=== PATIENT | male | born 1940 | race Asian ===

== ENCOUNTER 2018-12-27 22:34 | Emergency (ER) | payer OTHER ==
[~2018-12-27] VITALS: Ht 177.8 cm; Wt 63.7 kg
[2018-12-27 22:40] VITALS: Ht 177.8 cm; Wt 63.7 kg
[2018-12-28 00:55] VITALS: BP 110/58
== END 2018-12-28 00:55 | disposition home or self-care (01) ==
LOC: ED 22:34
DX: R05 Cough (principal); J45.909 Unspecified asthma, uncomplicated
CPT/HCPCS: 87804; J7512; J7613; J7644; Q0092